=== PATIENT | male | born 1980 | race Two or more races ===

== ENCOUNTER 2016-12-30 22:21 | Emergency (ER) | payer OTHER ==
--- NOTE | 2016-12-31 02:53 | ED ---
Chaim Núñez Billy, scribed for Andrew Mcdonnell MD on 12/31/16 at 0241 . Neurological HPI - HPI Summary HPI Summary: Patient is a 36 year-old male coming to [facility] presenting with diffuse numbness and tingling. He states that his symptoms began approximately 3 weeks ago and have worsened gradually since onset. He describes right-sided numbness and tingling of his face, LUE, and LLE, worst on the lateral aspects. He also describes similar left-sided numbness and tingling, however to a much lesser degree. Patient had carpal tunnel surgery with Dr. Jeronimo in early August 2016, which successfully alleviated his carpal tunnel. However, he spent 4 weeks in [place] last month, where he washed clothing by hand. He believes this may be the cause of his symptoms. - History of Current Complaint Chief Complaint: EDNeurologicalDeficit Stated Complaint: NUMBNESS ALL OVER Time Seen by Provider: 12/31/16 02:09 Hx Obtained From: Patient Onset/Duration: Gradual Onset Timing: Constant Onset Severity: Moderate Current Severity: Moderate Neurological Deficit Location: Generalized Character: Numbness/Tingling Alleviating: Nothing - Allergy/Home Medications Allergies/Adverse Reactions: Allergies Allergy/AdvReac Type Severity Reaction Status Date / Time ENVIRONMENTAL/SEASONAL Allergy Runny Nose Uncoded 08/26/16 22:19 PMH/Surg Hx/FS Hx/Imm Hx Endocrine/Hematology History: Denies: Hx Diabetes, Hx Thyroid Disease Cardiovascular History: Reports: Other Cardiovascular Problems/Disorders - RBBB Denies: Hx Hypertension, Hx Pacemaker/ICD Respiratory History: Reports: Hx Sleep Apnea Denies: Hx Asthma, Hx Chronic Obstructive Pulmonary Disease (COPD) GI History: Denies: Hx Ulcer Musculoskeletal History: Reports: Hx Tendonitis - R/T LEFT CARPAL TUNNEL Sensory History: Reports: Hx Contacts or Glasses - GLASSES Denies: Hx Hearing Aid Opthamlomology History: Reports: Hx Contacts or Glasses - GLASSES Neurological History: Reports: Other Neuro Impairments/Disorders - OCD Psychiatric History: Reports: Hx Anxiety - also OCD, Other Psychiatric Issues/ Disorders - OCD Denies: Hx Eating Disorder, Hx Panic Disorder - Surgical History Surgery Procedure, Year, and Place: 1996 APPENDECTOMY, [place]. 2014 LIVER BIOPSY , [facility] [place]. 07/27/2016 RIGHT CARPAL TUNNEL RELEASE, [facility] [place] Hx Anesthesia Reactions: No Infectious Disease History: No Infectious Disease History: Reports: Traveled Outside the [place] in Last 30 Days - [place] Denies: Hx Hepatitis, Hx Human Immunodeficiency Virus (HIV), History Other Infectious Disease - Family History Known Family History: Positive: Other - OCD and prostate cancer - Social History Alcohol Use: Rare Substance Use Type: Reports: None Smoking Status (MU): Never Smoked Tobacco Have You Smoked in the Last Year: No Review of Systems Negative: Fever Positive: Paresthesia, Numbness All Other Systems Reviewed And Are Negative: Yes Physical Exam Triage Information Reviewed: Yes Vital Signs On Initial Exam: Initial Vitals Temp Pulse Resp BP Pulse Ox 97.9 F 73 16 151/87 99 12/30/16 22:35 12/30/16 22:35 12/30/16 22:35 12/30/16 22:35 12/30/16 22:35 Vital Signs Reviewed: Yes Appearance: Positive: Well-Appearing, No Pain Distress Skin: Positive: Warm Head/Face: Positive: Normal Head/Face Inspection Eyes: Positive: ROBERT ENT: Positive: Hearing grossly normal Neck: Positive: Supple Respiratory/Lung Sounds: Positive: Clear to Auscultation, Breath Sounds Present Cardiovascular: Positive: RRR Abdomen Description: Positive: Nontender, Soft Bowel Sounds: Positive: Present Musculoskeletal: Positive: Strength/ROM Intact Neurological: Positive: Sensory/Motor Intact, Alert, Oriented to Person Place, Time, CN Intact II-III, Normal Gait Diagnostics - Vital Signs Vital Signs Temp Pulse Resp BP Pulse Ox 12/31/16 00:08 97.9 F 74 18 135/80 100 12/30/16 22:35 97.9 F 73 16 151/87 99 - Laboratory Result Diagrams: 12/31/16 03:00 12/31/16 03:00 Lab Statement: Any lab studies that have been ordered have been reviewed, and results considered in the medical decision making process. - CT brain CT Interpretation: No Acute Changes CT Interpretation Completed By: Radiologist Re-Evaluation - Re-Evaluation First Eval Change: Improved Course/Dx - Diagnoses Provider Diagnoses: Paresthesia Discharge - Discharge Plan Condition: Stable Disposition: HOME Patient Education Materials: Paresthesia (ED) Referrals: Crow Cornejo MD [Primary Care Provider] - The documentation as recorded by the Chaim rosenthal Billy accurately reflects the service I personally performed and the decisions made by Kecia lundberg David, MD.
[2016-12-31 03:13] LABS: Hematocrit 47 % (42-52); Hemoglobin 15.8 g/dl (14.0-18.0); Mean Corpuscular HGB Conc 33 g/dl (31-36); Mean Corpuscular Hemoglobin 29 pg (27-31); Mean Corpuscular Volume 87 fL (80-94); Mean Platelet Volume 10 um3 (7.4-10.4); Red Blood Count 5.43 10^6/ul (4.0-5.4); Red Cell Distribution Width 13 % (10.5-15); White Blood Count 9.8 10^3/ul (3.5-10.8)
[2016-12-31 03:29] LABS: Albumin 4.5 g/dL (3.2-5.2); BUN/Creatinine Ratio 19.7 (8-20); Calcium 9.6 mg/dL (8.6-10.3); EGFR Non-African American 117.4 (>60); Globulin 3.2 g/dL (2-4); Magnesium 2.2 mg/dL (1.9-2.7); Total Bilirubin 0.3 mg/dL (0.2-1.0); Total Protein 7.7 g/dL (6.4-8.9)
[2016-12-31 03:31] VITALS: BP 130/77
[2016-12-31 03:31] LABS: Potassium 4.1 mmol/L (3.5-5.0)
--- NOTE | 2016-12-31 08:00 | RAD ---
HISTORY: Bilateral numbness and tingling COMPARISONS: None TECHNIQUE: Multiple contiguous axial CT scans were obtained of the head without intravenous contrast. FINDINGS: HEMORRHAGE/INFARCT: There is no hemorrhage or acute infarct. MASSES/SHIFT: There is no mass or shift. EXTRA-AXIAL SPACES: There are no extra-axial fluid collections. SULCI AND VENTRICLES: The sulci and ventricles are normal in size and position for the patient's stated age. CEREBRUM: There are no focal parenchymal abnormalities. BRAINSTEM: There are no focal parenchymal abnormalities. CEREBELLUM: There are no focal parenchymal abnormalities. VESSELS: The vessels are grossly normal. PARANASAL SINUSES: The paranasal sinuses are clear. ORBITS: The orbits are unremarkable. BONES AND SOFT TISSUE: No bone or soft tissue abnormalities are noted. OTHER: None IMPRESSION: NO ACUTE INTRACRANIAL PATHOLOGY.
== END 2016-12-31 03:29 | disposition home or self-care (01) ==
LOC: ED 22:21
DX: R20.9 Unspecified disturbances of skin sensation (principal); R20.0 Anesthesia of skin
CPT/HCPCS: 36415; 70450; 80053; 83735; 85025; 99282

== ENCOUNTER 2017-04-12 07:04 | Day surgery (SDC) | payer OTHER ==
--- NOTE | 2017-04-07 21:24 | HP ---
PREOPERATIVE HISTORY AND PHYSICAL: DATE OF ADMISSION/SURGERY: 04/12/17 DATE OF OFFICE VISIT/ENCOUNTER: 04/06/17 ATTENDING SURGEON: Jagruti Jeronimo MD PROCEDURE: Right carpal tunnel release redo, right ulnar nerve decompression at the wrist. CHIEF COMPLAINT: Numbness and tingling, right hand. HISTORY OF PRESENT ILLNESS: This is a 37-year-old male who is disabled by obsessive-compulsive disorder, who has recurrent symptoms of numbness and tingling in his right hand. The patient did undergo a right carpal tunnel release in July of 2016; however, symptoms have reoccurred and they are affecting his full hand. The symptoms have been persistent and quite bothersome. After evaluation and recommendation by Dr. Jeronimo, he has consented to proceed with surgical intervention at this time in the form of right carpal release redo and an ulnar nerve decompression at the wrist. PAST MEDICAL HISTORY: 1. Obsessive-compulsive disorder. 2. History of nonalcoholic fatty liver disease. PAST SURGICAL HISTORY: 1. Appendectomy at age of 16. 2. Liver biopsy. 3. Right carpal tunnel release. 4. Left carpal tunnel release. CURRENT MEDICATIONS: 1. Elvia 180 mg p.r.n. 2. Azelastine HCl ophthalmic 0.05% one drop both eyes p.r.n. 3. Fluticasone propionate 50 mcg/ACT 2 sprays daily p.r.n. 4. Naproxen 500 mg 1 tab b.i.d. p.r.n. 5. Valium 10 mg 1 tab daily p.r.n. ALLERGIES: No known drug allergies. FAMILY MEDICAL HISTORY: Significant for prostate cancer and obsessive- compulsive disorder. SOCIAL HISTORY: The patient is disabled from work because of his OCD. 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 He denies tobacco use and illicit drug use. He does admit to alcohol use on rare occasion. REVIEW OF SYSTEMS: General: Negative for fevers, chills, or night sweats. No known anesthesia problems. HEENT: Negative for headaches, lightheadedness, or syncopal episodes. Integumentary: Negative for abrasions, lesions, or open wounds. Cardiothoracic: Negative for chest pain, palpitations, or edema. Negative for hypertension. Pulmonary: Negative for shortness of breath with exertion, chronic cough, COPD. GI: Negative for nausea, vomiting, diarrhea, constipation, or GERD. : Negative for nocturia, urinary frequency, urgency, history of UTIs, or kidney problems. Musculoskeletal: Positive for current complaint. Negative for chronic or intermittent back pain. No history of fractures. Neurological: Negative for paresthesias, numbness, history of seizure, stroke, or epilepsy. Endocrine: Negative for diabetes or thyroid issues. Hematologic: Negative for easy bruising, anemia, excessive bleeding, or history of DVT. Infectious Disease: Negative for history of MRSA, hepatitis C, or HIV. PHYSICAL EXAMINATION GENERAL: Well-developed, well nourished, 37-year-old male in no acute distress. VITAL SIGNS: Height 5 feet 9 inches, weight 226 pounds, pulse rate 68, blood pressure 112/76. NECK: Supple. No palpable lymph nodes. PULMONARY: Lungs are clear to auscultation bilaterally. No wheezes, rales, or rhonchi. CARDIOTHORACIC: Regular rate and rhythm. S1 and S2. No murmurs, rubs, or gallops. No edema. ABDOMEN: Positive bowel sounds, soft, nontender. NEUROLOGICAL: Alert and oriented x3. Cranial nerves II through XII are intact. Sensation is intact to light touch. MUSCULOSKELETAL: On exam of his right hand, he has no obvious thenar or interosseous muscle wasting. He has a positive Tinel's sign at the median nerve and ulnar nerve at the wrist. He has good range of motion of his fingers and wrist and sensation is intact to light touch. IMPRESSION: Right carpal tunnel syndrome, right ulnar nerve compression at the wrist. PLAN: The patient is scheduled to undergo a right carpal tunnel release redo and a right ulnar nerve decompression at the wrist with Dr. Jeronimo on 04/12/17. He will return to the office 10 to 14 days postop for followup and suture removal. A prescription for [place] was e-scribed to the patient's pharmacy for postoperative pain management and a prescription for lorazepam was e-scribed for postoperative anxiety. FRANSISCO HEREDIA [id number]/[facility] #: [id number] [facility] [place]
[~2017-04-12 07:04] MED LIST: Buffered Lidocaine 1% SYRIN* 5 ML/SYR SYRINGE INTRADERM ONE; Famotidine IV* 10 MG/ML 2 ML (20 mg) IV ONE
[2017-04-12] MEDS ORDERED: Lidocaine 1% INJ* 10 MG/ML 30 ML SDV ONE (07:15)
[2017-04-12] MEDS ORDERED: Buffered Lidocaine 1% SYRIN* 5 ML/SYR SYRINGE ONE (07:25)
[2017-04-12] MEDS ORDERED: Famotidine IV* 10 MG/ML 2 ML (20 mg) ONE (07:25)
[2017-04-12] MEDS ORDERED: Midazolam* 1 MG/ML 5 ML VIAL (5 MG) ONE (07:52)
[2017-04-12] MEDS ORDERED: fentaNYL* 50 MCG/ML 2 ML VIAL (100 MCG VIAL) ONE (07:52)
[2017-04-12] MEDS ORDERED: Acetaminophen TAB* 325 MG PO PRN (08:12)
[2017-04-12] MEDS ORDERED: DiMENhydriNATE IV* 50 MG/ML VIAL IV PUSH PRN (08:12)
[2017-04-12] MEDS ORDERED: Propofol* 10 MG/ML 20 ML BTL IV PUSH ONE (08:49)
[2017-04-12] MEDS ORDERED: Ketorolac INJ* 30 MG/ML 1 ML VIAL ONE (08:49)
[2017-04-12] MEDS ORDERED: Ondansetron INJ* 2 MG/ML VIAL ONE (08:49)
[2017-04-12] MEDS ORDERED: Lidocaine 2% PF * 5 ML VIAL ONE (08:49)
[2017-04-12] MEDS ORDERED: Midazolam* 1 MG/ML 2 ML VIAL (2 MG) ONE (09:13)
[2017-04-12 09:47] VITALS: BP 112/65
--- NOTE | 2017-04-14 04:49 | OP ---
DATE OF OPERATION: 04/12/17 - [facility] DATE OF : 84 SURGEON: Jagruti Jeronimo MD SPECIAL EVENTS DIRECTOR: FRANSISCO Ibrahim ANESTHESIOLOGIST: Mary Jo Eubanks MD ANESTHESIA: Local MAC. PRE-OP DIAGNOSES: Recurrent carpal tunnel syndrome and ulnar nerve compression to the right wrist. POST-OP DIAGNOSES: Recurrent carpal tunnel syndrome and ulnar nerve compression to the right wrist. OPERATIVE PROCEDURE: Right redo carpal tunnel release and ulnar nerve decompression of the right elbow. ESTIMATED BLOOD LOSS: Zero. TOURNIQUET TIME: About 15 minutes. INDICATIONS FOR PROCEDURE: Lan is a 37-year-old male who had a carpal tunnel release with very good relief, but his symptoms recurred pretty quickly. He also has symptoms of numbness in the ulnar nerve distribution and redo nerve conduction study after the first surgery showed median and ulnar nerve compression at the wrist. The patient presents for redo carpal tunnel release and ulnar nerve decompression of the right wrist. DESCRIPTION OF PROCEDURE: The patient was brought to the operating room, was given a sedation anesthetic, and a local infiltration of 10 cc of 1% plain lidocaine. The skin of his right hand and forearm was prepped and draped in the usual sterile fashion. The hand and forearm were exsanguinated and the tourniquet elevated to 250 mmHg. The previous scar was incised and then the incision was continued proximally with the second incision across the wrist creases on the ulnar aspect of the wrist. Dissected sharply through the subcutaneous tissue, through the transverse carpal ligament scar, completely decompressing the median nerve into the mid aspect of the palm, the proximal aspect of the forearm. We then carefully dissected out the ulnar nerve proximally and completely traced it through Guyon canal, completely releasing Guyon canal all the way into the mid aspect of the palm. The wound was irrigated and skin edges were reapproximated with 4-0 nylon suture. The wound was dressed with Xeroform, 4x4, Webril, and an Nate wrap. The patient tolerated the procedure well and was brought to recovery room in good condition. [id number]/[facility] #: [id number] MTDD
== END 2017-04-12 09:55 | disposition home or self-care (01) ==
LOC: OREAST 07:04
PROVIDERS: ATTEND Orthopaedic Surgery
DX: G56.01 Carpal tunnel syndrome, right upper limb (principal)
CPT/HCPCS: J1885; J2001; J2250; J2405; J2704; J3010

== ENCOUNTER 2017-04-25 18:40 | Emergency (ER) | payer OTHER ==
[2017-04-25 18:47] VITALS: BP 124/84
[2017-04-25] MEDS ORDERED: Benzoin Compound STICK TOPICAL ONE (18:56)
--- NOTE | 2017-04-25 19:10 | UC ---
HPI Wound/Suture Re-check - HPI Summary HPI Summary: Pt had carpal tunnel and ulnar nerve release with Dr. Jeronimo 04/14/17, went in to have sutures removed today. Here because he is anxious about his incision and wondering about infection and the scab pulling apart. Pt has OCD and acknowledges that much of his anxiety comes from this. Also he only has 2 steristrips on the wound, when last time (on the L hand) he had 5 steristrips. Would feel better with more steristrips. - History Of Current Complaint Chief Complaint: UCWounds Stated Complaint: STITCHES RE-CHECK Time Seen by Provider: 04/25/17 18:44 Hx Obtained From: Patient Onset/Duration: Still Present Severity: Mild Procedure Type: carpel tunnel release Surgery Date: 04/14/17 - Allergies/Home Medications Allergies/Adverse Reactions: Allergies Allergy/AdvReac Type Severity Reaction Status Date / Time ENVIRONMENTAL/SEASONAL Allergy Runny Nose Uncoded 04/25/17 18:47 Home Medications: Home Medications Multiple Vitamins W/ Minerals [Multivitamin Adults] 1 tab PO DAILY 04/25/17 [ History Confirmed 04/25/17] PMH/Surg Hx/FS Hx/Imm Hx Other Psychological History: OCD/anxiety d/o - Surgical History Surgical History: Yes Surgery Procedure, Year, and Place: 1996 [place]CTOMY, [place]. [place] [facility] [place] [facility] [place] RIGHT CARPAL TUNNEL SURGERY - Family History Known Family History: Positive: None, Other - OCD and prostate cancer - Social History Alcohol Use: Rare Alcohol Amount: ONCE A MONTH 1-2 BEERS Substance Use Type: None Smoking Status (MU): Never Smoked Tobacco Have You Smoked in the Last Year: No - Immunization History Most Recent Influenza Vaccination: unable to recall Most Recent Tetanus Shot: unable to recall Most Recent Pneumonia Vaccination: NA Review of Systems Constitutional: Negative Skin: Other - surgical wound to R palm Eyes: Negative ENT: Negative Respiratory: Negative Cardiovascular: Negative Gastrointestinal: Negative Genitourinary: Negative Motor: Negative Neurovascular: Negative Musculoskeletal: Negative Neurological: Negative Psychological: Anxious All Other Systems Reviewed And Are Negative: Yes Physical Exam Triage Information Reviewed: Yes Appearance: Well-Appearing, No Pain Distress, Well-Nourished Vital Signs: Initial Vital Signs Temp 98.6 F 04/25/17 18:42 Pulse 71 04/25/17 18:42 Resp 16 04/25/17 18:42 BP 124/84 04/25/17 18:42 Vital Signs Reviewed: Yes Eye Exam: Normal Eyes: Positive: Conjunctiva Clear ENT Exam: Normal ENT: Positive: Normal ENT inspection, Hearing grossly normal, Pharynx normal, TMs normal Dental Exam: Normal Neck exam: Normal Neck: Positive: Supple, Nontender, No Lymphadenopathy Respiratory Exam: Normal Respiratory: Positive: Chest non-tender, Lungs clear, Normal breath sounds, No respiratory distress, No accessory muscle use Cardiovascular Exam: Normal Cardiovascular: Positive: RRR, No Murmur Musculoskeletal Exam: Normal Neurological Exam: Normal Psychological Exam: Other - appropriate affect, logical thought process, expresses feeling anxiety. Skin Exam: Other - surgical wound R palm clean, dry, intact with 2 steristrips, no dehiscence. 3 further steristrips applied on exam, pt reassured. Course/Dx - Differential Dx - Laceration/Wound Provider Diagnoses: healing surgical wound R hand. anxiety. application of steristrips Discharge - Discharge Plan Condition: Stable Disposition: HOME Patient Education Materials: Steristrips (ED) Referrals: Jagruti Jeronimo MD [Medical Doctor] - Additional Instructions: Follow up with Dr. Jeronimo as scheduled. Your incision does not show any signs of infection or pulling apart. You can allow the steristrips to wear off on their own in the next 3-4 days.
== END 2017-04-25 19:20 | disposition home or self-care (01) ==
LOC: UCEAST 18:40
DX: Z51.89 Encounter for other specified aftercare (principal); F41.9 Anxiety disorder, unspecified
CPT/HCPCS: 99211; G0463

== ENCOUNTER 2017-05-28 11:51 | Emergency (ER) | payer OTHER ==
--- NOTE | 2017-05-28 17:19 | ED ---
Upper Extremity Pain - HPI Summary HPI Summary: B/L hand pain - has had this for a while now but worse this morning which brought him into the ED. Has h/o 2 nerve release surgeries on Rt wrist and 1 surgery 1 Left wrist. Prior to these he was diagnosed with nerve irritation and tendonitis. Mccarthy no relief NSAID's nor oral prednisone but 80% relief w/ steroid injection to affected areas in wrists. Unfortunately this did not last long and this is when he had surgeries. Theses helped for a while also but pt reports return of pain when he overused his hands again. Had another injection and surgery, again with temporary relief. Most recent surgery was 7 weeks ago - pain is new since. Has been going to PT w/o much relief. Has also had nerve conduction studies done which are returning as "negative"? Has also been seen by neurologist for toe numbness - improved w/ core exercises and was told this is MATT from lumbar spine although imaging normal. No cervical imaging but also denies pain, trauma here. Reports numbness along volar aspect of forearms from elbows when he sleeps with elbows bent so has been sleeping with arms straight. NOTE: has OCD and has not been able to perform rituals as a result of his hand pain. Takes valium and just restarted fluoxetine. Admits he's been through "all of the seratonin" meds and they eventually stopped working. He has had B12 testing which was normal. Mom has peripheral neuropathy and he was told he doesn 't have this. Has never tried gabapentin for pain or OCD - open to trying today. Follows w/ psychiatry and denies SI - feels his family is very supportive and he "would not do that". Emotions are more difficult to deal with recently but fluoxetine is helping to "dull (his) feelings". Concerned about possible systemic issue. Will check for Lyme dz. - History of Current Complaint Chief Complaint: EDExtremityUpper Stated Complaint: PAIN IN BOTH HANDS Time Seen by Provider: 05/28/17 15:50 Hx Obtained From: Patient, Family/Metal Spray Operator - father - Allergies/Home Medications Allergies/Adverse Reactions: Allergies Allergy/AdvReac Type Severity Reaction Status Date / Time ENVIRONMENTAL/SEASONAL Allergy Runny Nose Uncoded 06/08/17 09:12 PMH/Surg Hx/FS Hx/Imm Hx Previously Healthy: No - chronic/intermittent wrist/hand pain Endocrine/Hematology History: Denies: Hx Diabetes, Hx Thyroid Disease Cardiovascular History: Reports: Other Cardiovascular Problems/Disorders - RBBB Denies: Hx Hypertension, Hx Pacemaker/ICD Respiratory History: Reports: Hx Sleep Apnea - RESOLVED AFTER WEIGHT LOSS Denies: Hx Asthma, Hx Chronic Obstructive Pulmonary Disease (COPD) GI History: Reports: Other GI Disorders - FATTY LIVER DISEASE R/T WEIGHT, RESOLVED WITH WEIGHT LOSS Denies: Hx Ulcer Musculoskeletal History: Reports: Hx Back Problems - lumbar - resolved w/ PT, Hx Tendonitis - CARPAL TUNNEL BI-LAT Sensory History: Reports: Hx Contacts or Glasses - WEARS GLASSES Denies: Hx Cataracts, Hx Glaucoma, Hx Hearing Aid Opthamlomology History: Reports: Hx Contacts or Glasses - WEARS GLASSES Denies: Hx Cataracts, Hx Glaucoma Neurological History: Reports: Other Neuro Impairments/Disorders - OCD Psychiatric History: Reports: Hx Anxiety - disabling OCD, PRN ANXIETY MEDICATION AND THERAPY, Other Psychiatric Issues/Disorders - ocd Denies: Hx Eating Disorder, Hx Panic Disorder - Surgical History Surgery Procedure, Year, and Place: 1996 APPENDECTOMY, [place]. 2014 LIVER BIOPSY , [facility] [place]. 07/27/2016 RIGHT & LEFT CARPAL TUNNEL RELEASE, [facility] [place]. 04/12/2017 RIGHT CARPAL AND ULNAR TUNNEL SURGERY Hx Anesthesia Reactions: No Infectious Disease History: No Infectious Disease History: Denies: Hx Hepatitis, Hx Human Immunodeficiency Virus (HIV), History Other Infectious Disease, Traveled Outside the in Last 30 Days - Family History Known Family History: Positive: Other - OCD, prostate cancer; mom w/ peripheral neuropathy; brother MATT pain - Social History Occupation: Disabled - OCD Lives: With Family Alcohol Use: Rare Alcohol Amount: ONCE A MONTH 1-2 BEERS Hx Substance Use: No Substance Use Type: Reports: None Hx Tobacco Use: No Smoking Status (MU): Never Smoked Tobacco Have You Smoked in the Last Year: No Review of Systems Constitutional: Negative Negative: Fever, Chills Eyes: Negative ENT: Negative Cardiovascular: Negative Negative: Chest Pain Respiratory: Negative Negative: Shortness Of Breath Gastrointestinal: Negative Positive: no symptoms reported Musculoskeletal: Other - see HPI Skin: Negative Neurological: Other - see HPI Positive: Anxious - see HPI All Other Systems Reviewed And Are Negative: Yes Physical Exam Triage Information Reviewed: Yes Vital Signs On Initial Exam: Initial Vitals Temp Pulse Resp BP Pulse Ox 97.8 F 79 18 130/77 97 07/15/17 11:56 05/28/17 11:56 05/28/17 11:56 05/28/17 11:56 05/28/17 11:56 Vital Signs Reviewed: Yes Appearance: Positive: Well-Nourished - pt appears calm and eager to report sx - he becomes more anxious and upset as he explains his sx Skin: Positive: Warm, Dry - healed scars over B/L palmar aspects of hands - no erythema, no edema, no ecchymosis, no fluctuance Head/Face: Positive: Normal Head/Face Inspection Eyes: Positive: EOMI ENT: Positive: Hearing grossly normal Respiratory/Lung Sounds: Positive: Breath Sounds Present Cardiovascular: Positive: Normal, Pulses are Symmetrical in both Upper and Lower Extremities Musculoskeletal: Positive: Strength/ROM Intact - pain w/ gripping motion in hands and moving wrists B/L but is able to go through FROM Neurological: Positive: Normal, Sensory/Motor Intact, Alert, Oriented to Person Place, Time, CN Intact II-III Psychiatric: Positive: Anxious - upset, anxious, perseverates; no SI/HI Diagnostics - Vital Signs Vital Signs Temp Pulse Resp BP Pulse Ox 05/28/17 14:24 97.8 79 18 130/77 98 05/28/17 11:56 97.8 79 18 130/77 97 - Laboratory Lab Statement: Any lab studies that have been ordered have been reviewed, and results considered in the medical decision making process. Course/Dx - Course Course Of Treatment: Discussed course of sx with pt and that a definitive dx cannot be made here tonight however he seems to have a peripheral neuropathy as he discloses he has sx in both his hands and feet. He does report improved sx after 1 of his surgeries but unfortunately has return of sx after overusing hands again which he feels compelled to do as part of his OCD rituals. He is linked w/ mental health. Offered trialing medication here today which will hopefully address his neuropathy as well as his OCD. Advised to f/u w/ PCP and MH. Pt agrees w/ plan. - Diagnoses Provider Diagnoses: Peripheral neuropathy, OCD (obsessive compulsive disorder), Anxiety Discharge - Discharge Plan Condition: Stable Disposition: HOME Prescriptions: Gabapentin CAP(*) [Neurontin 300 CAP(*)] 300 mg PO TID #21 cap Patient Education Materials: Peripheral Neuropathy (ED) Referrals: Crow Cornejo MD [Primary Care Provider] - Additional Instructions: The root cause of your symptoms was not identified today however you are reporting pain in your hands bilaterally and given your history of surgeries here, you have agreed to try a 2 week course of gabapentin. It is important that you follow-up with your PCP this coming week to review course of medication regarding pain. Call Tuesday to schedule an appointment. This medication may also help with your OCD which you have expressed is worse since hand pain due to lack of ability to carry out rituals. Please report back to your psychiatrist with outcomes of OCD symptoms as well while taking gabapentin. Take 1 today, 2 pills tomorrow (12 hours apart) and 3 pills on the if needed. If you have relief with 1 pill a day, only take 1. If you have relief with 2, then only take 2. *If you develop suicidal ideations, call psychiatrist or return to ED
[2017-05-28] MEDS ORDERED: Gabapentin CAP(*) 300 MG PO ONE (17:29)
[2017-05-28 18:06] VITALS: BP 118/67
[2017-05-31 17:36] LABS: Lyme Disease IgG Ab WB Negative (Negative)
== END 2017-05-28 18:02 | disposition home or self-care (01) ==
LOC: ED 11:51
DX: F42.9 Obsessive-compulsive disorder, unspecified (principal); G62.9 Polyneuropathy, unspecified; F41.9 Anxiety disorder, unspecified
CPT/HCPCS: 86617; 99282; A9270-GY